=== PATIENT | female | born 1965 | race Caucasian/White ===

== ENCOUNTER 2017-05-10 08:44 | Emergency (ER) | payer MEDICAID ==
[~2017-05-10] VITALS: Ht 149.9 cm; Wt 78.0 kg
[~2017-05-10 08:44] MED LIST: NO MEDS
[2017-05-10 08:46] VITALS: Ht 149.9 cm; Wt 78.0 kg
[2017-05-10] MEDS ORDERED: ACETAMINOPHEN 325 MG TAB PO STA (10:08)
[2017-05-10] MEDS ORDERED: CEFTRIAXONE 1 GM/50 ML (PMX) 50 ML IVPB STA (10:08)
--- NOTE | 2017-05-10 10:12 | ERD ---
ER Documentation Chief Complaint Date/Time DATE: 05/10/17 TIME: 10:10 Chief Complaint FEVER, BACK AND ABD PAIN, CHILLS, NAUSEA AND VOMITING, HX OF UTI HPI Patient is a 51-year-old female who presents with 2 days of gradual onset, constant, progressive, dull bilateral mid back pain. She also reports a gradual onset headache and subjective fever. She reports that she has had dysuria for the last 15 days. She took [id number] Azo but did not see a physician or take antibiotics. Patient reports 2 episodes of vomiting. She denies abdominal pain. She denies shortness of breath. She denies neck stiffness. ROS All systems reviewed and are negative except as per history of present illness. Medications Home Meds Active Scripts Ondansetron Hcl* (Zofran*) 4 Mg Tablet, 4 MG PO Q8H Y for NAUSEA AND/OR VOMITING , #15 TAB Prov:YOSEPH DIAZ MD 05/10/17 Cephalexin* (Keflex*) 500 Mg Capsule, 500 MG PO QID for 10 Days, CAP Prov:YOSEPH DIAZ MD 05/10/17 Reported Medications [No Meds] No Conflict Check 10/04/13 [None] No Conflict Check 12/30/10 Allergies Allergies: Coded Allergies: No Known Allergies (Verified Allergy, Mild, 10/04/13) PMhx/Soc Past medical history: Diabetes mellitus Past surgical history: Social history: Denies tobacco or alcohol History of Surgery: Yes ( 2001) Anesthesia Reaction: No Hx Neurological Disorder: No Hx Respiratory Disorders: No Hx Cardiac Disorders: No Hx Psychiatric Problems: No Hx Miscellaneous Medical Probl: Yes (Diabetes) Hx Alcohol Use: No Hx Substance Use: No Hx Tobacco Use: No Smoking Status: Never smoker FmHx Family History: No coronary disease, No diabetes Physical Exam Vitals Vital Signs Date Time Temp Pulse Resp B/P Pulse Ox O2 Delivery O2 Flow Rate FiO2 05/10/17 08:46 101.0 95 18 130/64 97 Physical Exam Const: Alert, no acute distress Head: Atraumatic Eyes: Normal Conjunctiva, no pallor, no icterus, no photophobia ENT: Normal External Ears, Nose and Mouth. Mucous membranes moist Neck: Full range of motion. No meningismus. Resp: Clear to auscultation bilaterally, no wheezes, no rales Cardio: Mild tachycardia, regular rhythm, no murmurs Abd: Soft, non tender, non distended. Normal bowel sounds Skin: No petechiae or rashes Back: Bilateral paraspinal tenderness in the low thoracic and high lumbar region, equivocal bilateral CVA tenderness Ext: No cyanosis, or edema Neur: Awake and alert, cranial nerves II through XII intact bilaterally, strength and sensation full in 4 extremities. Psych: Normal Mood and Affect Result Diagram: 05/10/17 1005 05/10/17 1005 Results 24 hrs Laboratory Tests Test 05/10/17 10:05 05/10/17 10:08 White Blood Count 5.710^3/ul Red Blood Count 4.1810^6/ul Hemoglobin 11.9g/dl Hematocrit 36.0% Mean Corpuscular Volume 86.1fl Mean Corpuscular Hemoglobin 28.5pg Mean Corpuscular Hemoglobin Concent 33.1g/dl Red Cell Distribution Width 13.2% Platelet Count 02788^3/UL Mean Platelet Volume 10.1fl Neutrophils % 83.8% Lymphocytes % 11.2% Monocytes % 4.2% Eosinophils % 0.0% Basophils % 0.4% Nucleated Red Blood Cells % 0.0/100WBC Neutrophils # 4.710^3/ul Lymphocytes # 0.610^3/ul Monocytes # 0.210^3/ul Eosinophils # 0.010^3/ul Basophils # 0.010^3/ul Nucleated Red Blood Cells # 0.010^3/ul Urine Color LT. YELLOW Urine Clarity SLIGHTLY CLOUDY Urine pH 5.5 Urine Specific [place] 1.025 Urine Ketones NEGATIVE Urine Nitrite POSITIVE Urine Bilirubin NEGATIVE Urine Urobilinogen 0.2 E.U./dL Urine Leukocyte Esterase 1+ Urine Microscopic RBC 0-2/HPF Urine Microscopic WBC 5-10/HPF Urine Squamous Epithelial Cells FEW Urine Bacteria MANY Urine Hemoglobin 3+ Urine Glucose NEGATIVE% Urine Total Protein 1+ Sodium Level 135mmol/L Potassium Level 4.2mmol/L Chloride Level 104mmol/L Carbon Dioxide Level 22mmol/L Anion Gap 13 Blood Urea Nitrogen 11mg/dl Creatinine 0.70mg/dl Glucose Level 108mg/dl Calcium Level 9.2mg/dl Total Bilirubin 0.3mg/dl Direct Bilirubin 0.00mg/dl Indirect Bilirubin 0.3mg/dl Aspartate Amino Transf (AST/SGOT) 27IU/L Alanine Aminotransferase (ALT/SGPT) 46IU/L Alkaline Phosphatase 74IU/L Total Protein 6.8g/dl Albumin 4.5g/dl Globulin 2.30g/dl Albumin/Globulin Ratio 1.95 Lactic Acid Level 1.0mmol/L Current Medications Medications (Trade) Dose Ordered Sig/Harman Route PRN Reason Start Time Stop Time Status Last Admin Dose Admin Acetaminophen 650 mg 650 mg ONCE STAT PO 05/10/17 10:08 05/10/17 10:10 DC 05/10/17 10:48 Ceftriaxone Sodium 50 ml @ 100 mls/hr ONCE STAT IVPB 05/10/17 10:08 05/10/17 10:37 DC 05/10/17 10:47 Sodium Chloride (NS) 1,000 ml @ 1,000 mls/hr Q1H ONCE IV 05/10/17 10:30 05/10/17 11:29 DC 05/10/17 10:48 Procedures/MDM MDM: Patient is a 51-year-old female who presents with 15 days of dysuria. For the last 2-3 days she has had back pain and fever. There are no neurological symptoms. Patient also complains of headache. There are no signs of meningitis. Patient's UA is consistent with pyelonephritis. She has a benign abdominal exam. She is diabetic but has a normal glucose at this time. There is no evidence of sepsis. I do not of concern for spinal abscess. I will discharge the patient with a 10 day course of Keflex and Zofran for nausea. I have advised the patient on return precautions. A urine culture was sent. The patient is well-appearing. Departure Diagnosis: Primary Impression: Pyelonephritis Condition: Stable YOSEPH DIAZ MD May 10, 2017 10:12 YOSEPH DIAZ MD May 10, 2017 10:12
[2017-05-10] MEDS ORDERED: SOD CHLORIDE 0.9% 1,000 ML IV ONE (10:30)
[2017-05-10 10:53] LABS: ADD SCAN DIFF NO
[2017-05-10 11:09] LABS: BASOPHILS % 0.4 % (0.0-2.0); HEMOGLOBIN 11.9 g/dl (12.0-16.0); LYMPHOCYTES # 0.6 10^3/ul (0.8-2.9); LYMPHOCYTES % 11.2 % (15.0-51.0); MEAN CORPUSCULAR HEMOGLOBIN 28.5 pg (29.0-33.0); MEAN CORPUSCULAR HGB CONC 33.1 g/dl (32.0-37.0); MEAN CORPUSCULAR VOLUME 86.1 fl (82.0-101.0); MEAN PLATELET VOLUME 10.1 fl (7.4-10.4); MONOCYTE # 0.2 10^3/ul (0.3-0.9); MONOCYTES % 4.2 % (0.0-11.0); NEUTROPHIL # 4.7 10^3/ul (1.6-7.5); NEUTROPHILS % 83.8 % (39.0-77.0); PLATELET COUNT 214 10^3/UL (140-415); RED BLOOD COUNT 4.18 10^6/ul (4.20-5.40); RED CELL DISTRIBUTION WIDTH 13.2 % (11.5-14.5); WHITE BLOOD COUNT 5.7 10^3/ul (4.8-10.8)
[2017-05-10 11:30] LABS: ALBUMIN 4.5 g/dl (3.3-4.9); ALBUMIN/GLOBULIN RATIO 1.95; BILIRUBIN,INDIRECT 0.3 mg/dl (0-1.1); BILIRUBIN,TOTAL 0.3 mg/dl (0.2-1.3); CALCIUM 9.2 mg/dl (8.4-10.2); CREATININE 0.7 mg/dl (0.44-1.00); POTASSIUM 4.2 mmol/L (3.5-5.1); TOTAL PROTEIN 6.8 g/dl (6.1-8.1)
[2017-05-10 11:32] LABS: ADD UMIC YES; UR BILIRUBIN (Dip) NEGATIVE (NEGATIVE); UR BLOOD (Dip) 3+ (NEGATIVE); UR CLARITY SLIGHTLY CLOUDY (CLEAR); UR COLOR LT. YELLOW (YELLOW); UR GLUCOSE (Dip) NEGATIVE (NEGATIVE); UR KETONES (Dip) NEGATIVE (NEGATIVE); UR LEUKOCYTE ESTERASE (Dip) 1+ (NEGATIVE); UR NITRITE (Dip) POSITIVE (NEGATIVE); UR TOTAL PROTEIN (Dip) 1+ (NEGATIVE); UR UROBILINOGEN (Dip) 0.2 E.U./dL (0.1-1.0)
[2017-05-10 11:41] LABS: UR SQUAMOUS EPITHELIAL CELL FEW; URINE RBCS 0-2 /HPF (0)
[2017-05-10 11:42] LABS: UR BACTERIA MANY
[2017-05-10] MEDS ORDERED: ONDA4TAB8 PO (11:58)
[2017-05-10] MEDS ORDERED: CEPH-443 PO (11:58)
== END 2017-05-10 12:10 | disposition home or self-care (01) ==
LOC: FTE 08:44
DX: N12 Tubulo-interstitial nephritis, not specified as acute or chronic (principal); E11.9 Type 2 diabetes mellitus without complications; R11.2 Nausea with vomiting, unspecified
CPT/HCPCS: 80053; 81001; 83605; 85025; 87086; J0696; J7030; Z7610; 36415; 96374